=== PATIENT | male | born 1960 | race Caucasian/White ===

== ENCOUNTER → 2021-05-20 | Outpatient (CLI) | payer OTHER | END | disposition home or self-care (01) | LOC: LAB SHORT 13:25 | DX: L82.1 Other seborrheic keratosis (principal) | CPT/HCPCS: 88305 ==

== ENCOUNTER 2024-08-23 12:53 | Day surgery (SDC) | payer OTHER ==
[~2024-08-23] VITALS: Ht 165.1 cm; Wt 78.3 kg
[~2024-08-23 12:53] MED LIST: Balanced Salt Epinephrine Irrigation Solution 500 mL IR SCH; Lidocaine HCl/Pf 1% 5 ML VIAL XX SCH; Moxifloxacin HCL 0.5 MG/0.1 ML 0.4MLSYR LEFTEYE SCH; NS 500 ML IV ONE; PHENYLEPHRINE\\TROPICAMIDE\\TETRACAINE OPHTHALMIC DILATING SOLN LEFTEYE PRN; Povidone-Iodine 450 DROP/30 ML Solution LEFTEYE SCH; Povidone-Iodine 450 DROP/30 ML Solution ONE; Tetracaine HCl/Pf 0.5% Opth Soln 4 ml ONE
[2024-08-23] MEDS ORDERED: METF500 PO (13:20)
[2024-08-23] MEDS ORDERED: BYDUREON B2 MG/0.81 SQ (13:20)
[2024-08-23] MEDS ORDERED: JARDIANCE25 MG PO (13:20)
[2024-08-23] MEDS ORDERED: PRAV20 PO (13:21)
[2024-08-23] MEDS ORDERED: IRBE75 PO (13:21)
[2024-08-23] MEDS ORDERED: AMLO5 PO (13:21)
[2024-08-23] MEDS ORDERED: CARV25 PO (13:21)
[2024-08-23] MEDS ORDERED: Aspir 8181 MG PO (13:21)
[2024-08-23] MEDS ORDERED: Midazolam HCl 1MG / ML 2ML Vial ONE (13:57)
[2024-08-23] MEDS ORDERED: FentaNYL Citrate 50 MCG/ML 2 ML Injection ONE (14:01)
[2024-08-23 14:35] VITALS: BP 132/75
== END 2024-08-23 14:55 | disposition home or self-care (01) ==
LOC: ORSCSDS 12:53
PROVIDERS: Student in an Organized Health Care Education/Training Program
PROC: 08RK3JZ Replacement of Left Lens with Synthetic Substitute, Percutaneous Approach (ICD-10-PCS; principal; 2024-08-23 14:30)
DX: E11.36 Type 2 diabetes mellitus with diabetic cataract (principal); H25.813 Combined forms of age-related cataract, bilateral; I10 Essential (primary) hypertension; Z79.84 Long term (current) use of oral hypoglycemic drugs; Z79.82 Long term (current) use of aspirin; Z79.899 Other long term (current) drug therapy
CPT/HCPCS: 82947; J2250; J3010; J7040; V2632

== ENCOUNTER 2024-10-18 10:56 | Day surgery (SDC) | payer OTHER ==
[~2024-10-18] VITALS: Ht 165.1 cm; Wt 70.8 kg
[~2024-10-18 10:56] MED LIST changes: +AMLO5 PO; +Aspir 8181 MG PO; +BYDUREON B2 MG/0.81 SQ; +CARV25 PO; +IRBE75 PO; +JARDIANCE25 MG PO; +METF500 PO; -Moxifloxacin HCL 0.5 MG/0.1 ML 0.4MLSYR LEFTEYE SCH; +Moxifloxacin HCL 0.5 MG/0.1 ML 0.4MLSYR RIGHTEYE SCH; -NS 500 ML IV ONE; -PHENYLEPHRINE\\TROPICAMIDE\\TETRACAINE OPHTHALMIC DILATING SOLN LEFTEYE PRN; +PHENYLEPHRINE\\TROPICAMIDE\\TETRACAINE OPHTHALMIC DILATING SOLN RIGHTEYE PRN; +PRAV20 PO; -Povidone-Iodine 450 DROP/30 ML Solution LEFTEYE SCH; +Povidone-Iodine 450 DROP/30 ML Solution RIGHTEYE SCH
[2024-10-18] MEDS ORDERED: Midazolam HCl 1MG / ML 2ML Vial ONE (12:11)
--- NOTE | 2024-10-18 12:12 | NUR ---
10/18/24 1212 Christian Olson CALL LIGHT WITHIN REACH. TETRACAINE IN RIGHT EYE AT 1208 AND PLEDGETT IN AT 1209.
[2024-10-18 13:38] VITALS: BP 121/81
== END 2024-10-18 13:45 | disposition home or self-care (01) ==
LOC: ORSCSDS 10:56
PROVIDERS: Student in an Organized Health Care Education/Training Program
PROC: 08RJ3JZ Replacement of Right Lens with Synthetic Substitute, Percutaneous Approach (ICD-10-PCS; principal; 2024-10-18 12:30)
DX: H25.811 Combined forms of age-related cataract, right eye (principal); E11.36 Type 2 diabetes mellitus with diabetic cataract; Z96.1 Presence of intraocular lens; I10 Essential (primary) hypertension; Z79.84 Long term (current) use of oral hypoglycemic drugs; Z79.82 Long term (current) use of aspirin; Z79.899 Other long term (current) drug therapy
CPT/HCPCS: 82947; J2250; V2632